=== PATIENT | female | born 1950 | race Caucasian/White ===

== ENCOUNTER 2019-10-15 15:29 | Outpatient (CLI) | payer MEDICARE, OTHER, SELFPAY ==
--- NOTE | ~2019-10-15 | XR_ITS ---
XR abdomen/kub 1V DATE: 10/15/2019 16:01 INDICATION: Kidney calculus TECHNIQUE: Supine AP views of the abdomen COMPARISON: 05/22/2016 KUB FINDINGS: The lower lung zones appear clear. Heart size appears normal. The psoas shadows are intact. No visceromegaly is evident. There is suggestion of possible approximately 4 mm calcification overlying the lower pole right kidne y. Noncontrast CT examination the abdomen and pelvis would be more sensitive and accurate for detect ion of urinary tract calculi. There is a moderate amount of fecal material within the colon. No bowel obstruction is detected. IMPRESSION: Cannot exclude right renal calcified stone(s); noncontrast CT abdomen and pelvis would be more sensitive and accurate for detection of urinary tract calculi Reviewed, dictated and finalized at [facility]. Reviewed, dictated and finalized at location [facility]. IMPRESSION: Cannot exclude right renal calcified stone(s); noncontrast CT abdom en and pelvis would be more sensitive and accurate for detection of urinary tra ct calculi
== END 2019-10-15 15:30 | disposition home or self-care (01) ==
PROVIDERS: PCP Family Medicine
DX: N20.0 Calculus of kidney (principal)
CPT/HCPCS: 74018

== ENCOUNTER 2021-01-08 02:10 | Day surgery (SDC) | payer MEDICARE, SELFPAY ==
[2020-12-27 13:00] VITALS: BMI 42.2
--- NOTE | 2021-01-08 07:00 | P.PNAN_ITS ---
Anes - Initial Pre Proc Eval Procedure: Operation Date: 01/08/21 09:00 Proposed Procedures p Screening Colonoscopy - Kalia Mcmanus MD Date/Time: 01/08/21 07:00 Surgeon: Kalia Mcmanus MD Pre Op Diagnosis: hx of colon polyps Patient Data Age: 70 Gender: F Height: 1.65 m Weight: 115 kg Allergies Allergy/AdvReac Type Severity Reaction Status Date / Time levofloxacin Allergy Intermediate Rash Verified 01/08/21 08:18 Home Medications Medication Instructions Recorded Confirmed Type allopurinol 300 mg PO DAILY 12/27/20 01/08/21 History aspirin [Adult Aspirin] 81 mg PO DAILY 12/27/20 01/08/21 History atorvastatin 10 mg PO DAILY 12/27/20 01/08/21 History bisacodyl [Dulcolax (bisacodyl)] 5 mg PO DAILY 12/27/20 01/08/21 History cyanocobalamin (vitamin B-12) 1,000 mcg IM MONTHLY 12/27/20 01/08/21 History diclofenac sodium 75 mg PO DAILY PRN 12/27/20 01/08/21 History ergocalciferol (vitamin D2) 1,250 mcg PO WEEKLY 12/27/20 01/08/21 History gemfibrozil 600 mg PO BID 12/27/20 01/08/21 History losartan 50 mg PO DAILY 12/27/20 01/08/21 History omeprazole 20 mg PO DAILY 12/27/20 01/08/21 History potassium citrate 15 meq PO DAILY 12/27/20 01/08/21 History Patient hx anesthesia problems: none Family hx anesthesia problems: none [facility] Past Medical History Medical History (Updated 01/08/21 @ 07:01 by Dhruv Burgos DO) GERD (gastroesophageal reflux disease) Hyperlipidemia Hypertension Surgical History Surgical History (Updated 01/08/21 @ 07:01 by Dhruv Burgos DO) History of hysterectomy History of total bilateral knee replacement Social History Social History Smoking status: Never smoker Living arrangements: alone Spiritual care concerns: No Anes - Eval Final PreProcedure Day of Procedure 01/08/21 07:00 Patient weight: morbidly obese Heart: regular rate and rhythm Lungs: clear to auscultation and normal air movement Airway: Mallampati scale class II Neurological: alert and oriented Last oral intake: >/= 8 hours ASA classification: III Emergent: no Anesthetic plan: proceed Anesthesia type and monitoring: general GIVS and standard monitoring Informed Consent: The patient's anesthetic plan and its attendant risks and benefits were discussed with the patient/family/POA. Questions were solicited and answers provided to the satisfaction of the patient/family/POA.
[2021-01-08 08:19] VITALS: BP 131/75; PULSE 90; RESP 16; TEMP 36; O2SAT 97; BMI 43.1
[2021-01-08] MEDS: LACTATED RINGERS 1,000 ML 150 ML IV CONT (08:32)
--- NOTE | 2021-01-08 09:13 | PM.HPGS ---
History of Present Illness History of Present Illness Consent: Risks, benefits, and alternatives have been discussed and questions answered. Patient agrees to proceed with procedure. Chief complaint: hx of colon polyps Narrative: Gertrude Hyatt is a 70 year old female with colon polyps 3 years ago. Review of Systems Constitutional: Constitutional: Denies headache(s) and Denies weakness Eyes: Eyes: Denies blurry vision ENT: Reports Normal hearing present, Denies headache(s) and Denies neck pain Cardiovascular: Cardiovascular: Denies chest pain and Denies dyspnea Respiratory: Respiratory: Denies dyspnea Gastrointestinal: Gastrointestinal: Reports no additional gastrointestinal complaints Genitourinary: Genitourinary: Denies dysuria Musculoskeletal: Musculoskeletal: Denies neck pain Integumentary/Breasts: Skin/Breast: Denies dry skin Neurologic: Reports Normal hearing present, Denies headache(s) and Denies weakness Psychiatric: Psychiatric: Denies anxiety Endocrine: Endocrine: Denies change in body appearance Hematologic/Lymphatic: Hematologic/Lymphatic: Denies easy bleeding Allergic/Immunologic: Allergic/Immunologic: Denies urticaria PMFSH Past Medical History Medical History (Updated 01/08/21 @ 09:14 by Kalia Mcmanus MD) Adenomatous colon polyp GERD (gastroesophageal reflux disease) Hyperlipidemia Hypertension Surgical History Surgical History (Updated 01/08/21 @ 07:01 by Dhruv Burgos DO) History of hysterectomy History of total bilateral knee replacement Social History Social History Smoking status: Never smoker Living arrangements: alone Spiritual care concerns: No Meds Home Medications and Allergies Home Medications Medication Instructions Recorded Confirmed Type allopurinol 300 mg PO DAILY 12/27/20 01/08/21 History aspirin [Adult Aspirin] 81 mg PO DAILY 12/27/20 01/08/21 History atorvastatin 10 mg PO DAILY 12/27/20 01/08/21 History bisacodyl [Dulcolax (bisacodyl)] 5 mg PO DAILY 12/27/20 01/08/21 History cyanocobalamin (vitamin B-12) 1,000 mcg IM MONTHLY 12/27/20 01/08/21 History diclofenac sodium 75 mg PO DAILY PRN 12/27/20 01/08/21 History ergocalciferol (vitamin D2) 1,250 mcg PO WEEKLY 12/27/20 01/08/21 History gemfibrozil 600 mg PO BID 12/27/20 01/08/21 History losartan 50 mg PO DAILY 12/27/20 01/08/21 History omeprazole 20 mg PO DAILY 12/27/20 01/08/21 History potassium citrate 15 meq PO DAILY 12/27/20 01/08/21 History Allergies Allergy/AdvReac Type Severity Reaction Status Date / Time levofloxacin Allergy Intermediate Rash Verified 01/08/21 08:18 Vital Signs Vital Signs - 24 hr 01/08/21 08:19 Temperature 96.8 F L Pulse Rate 90 Respiratory Rate 16 Blood Pressure 131/75 Pulse Oximetry 97 Exam Const: General: comfortable and no acute distress HENMT: General nose exam: Normal nares present Eyes: General: appearance normal, both eyes and all related structures Neck: Neck: no JVD Resp: Auscultation: clear to auscultation bilaterally Cardio: Rate: regular rate Rhythm: regular rhythm GI: Inspection: non-distended GI Palp: Yes Soft to palpation Skin: General skin exam: normal color Neuro: General: gait normal Speech: normal speech Extrem: General: normal to inspection Psych: Mental Status: mental status grossly normal Assessment and Plan Assessment and plan (1) Adenomatous colon polyp: Code(s): D12.6 - Benign neoplasm of colon, unspecified Status: Acute Assessment and Plan: colonoscopy
[2021-01-08 09:43] VITALS: BP 146/129; PULSE 87; RESP 17; O2SAT 94
[2021-01-08 09:53] VITALS: BP 112/70; PULSE 79; RESP 16; O2SAT 94
[2021-01-08 10:03] VITALS: BP 122/73; PULSE 76; RESP 22; O2SAT 97
== END 2021-01-08 10:24 | disposition home or self-care (01) ==
PROVIDERS: PCP Family Medicine; Visit Provider Internal Medicine Gastroenterology
PROC: 0DJD8ZZ Inspection of Lower Intestinal Tract, Via Natural or Artificial Opening Endoscopic (ICD-10-PCS; CPT 45378; principal; 2021-01-08 09:00)
DX: Z12.11 Encounter for screening for malignant neoplasm of colon (principal); D12.0 Benign neoplasm of cecum; K64.8 Other hemorrhoids; K63.5 Polyp of colon; K21.9 Gastro-esophageal reflux disease without esophagitis; I10 Essential (primary) hypertension; Z79.82 Long term (current) use of aspirin; E66.01 Morbid (severe) obesity due to excess calories; Z68.41 Body mass index [BMI] 40.0-44.9, adult
CPT/HCPCS: 45385; 88305; J2704; J7120

== ENCOUNTER 2024-03-05 13:12 | Outpatient (CLI) | payer MEDICARE, SELFPAY ==
--- NOTE | ~2024-03-05 | MM_ITS ---
EXAMINATION: MM screening [facility] BI w jayla HISTORY: Screening TECHNIQUE: Craniocaudal and mediolateral oblique 3-D tomosynthesis images were obtained and synthetic 2-D images were generated. CAD analysis was submitted and interpreted. COMPARISON: 01/09/2017 BREAST PARENCHYMAL COMPOSITION: Not dense: There are scattered areas of fibroglandular density. FINDINGS: There is no evidence of suspicious mass, calcification, or architectural distortion to sugg est malignancy in either breast. There has been no suspicious interval change. IMPRESSION: 1. No mammographic evidence of malignancy. 2. Recommend routine screening mammography in one year. BI-RADS Category 1: Negative Reviewed, dictated and finalized at location [facility].
== END 2024-03-05 13:13 | disposition home or self-care (01) ==
LOC: MICIMG 13:18
PROVIDERS: PCP Family Medicine; Visit Provider Family Medicine
DX: Z12.31 Encounter for screening mammogram for malignant neoplasm of breast (principal)
CPT/HCPCS: 77063; 77067

== ENCOUNTER 2024-05-10 13:03 | Outpatient (CLI) | payer MEDICARE, SELFPAY ==
--- NOTE | ~2024-05-10 | DEXA_ITS ---
Bone Density Report Name: LENCHO WARREN Age: 73 Sex: Female Ethnicity: White Date of : 1950 Indication: postmenopausal; screening for osteoporosis; hysterectomy; Referring Provider: CATRACHITA, [facility] Study: Bone densitometry was performed. Exam Date: May 10, 2024 Accession number: [id number] Bone Density: Region BMD T-score Z-score Classification AP Spine(L1-L4) 1.417 3.4 5.8 Normal Femoral Neck (Left) 0.983 1.2 3.3 Normal Total Hip (Left) 1.288 2.8 4.7 Normal Femoral Neck (Right) 0.915 0.6 2.7 Normal Total Hip (Right) 1.282 2.8 4.6 Normal Femoral Neck Mean 0.949 0.9 3.0 Normal Total Hip Mean 1.285 2.8 4.6 Normal World Health Organization criteria for BMD impression classify patients as: Normal (T-score at or above -1.0), Osteopenia (T-score between -1.0 and -2.5), or Osteoporosis (T-score at or below -2.5). 10-year Fracture Risk: FRAX not reported because: All T-scores for Spine Total, Hip Total, Femoral Neck at or above -1.0 Clinical Information Provided by Patient: Has used the following medications: Vitamin D Has the following medical conditions: Hysterectomy Menopause Age: 48 No regular weight bearing exercise Drinks caffeinated beverages Onset of menses at age 10 Number of children 3 Impression: The patient has normal bone mass. Discussion: LOW RISK OF FRACTURE; BONE DENSITY IS WELL ABOVE THE MINIMUM DESIRABLE LEVEL AND ABOVE AVERAGE FOR AGE AND SEX AT ALL SKELETAL SITES TESTED. This person's bone density is above expected limits for age and sex. This is rarely clinically significant, but should be pursued if there are significant musculoskeletal complaints. The patient should follow a healthful lifestyle (good nutrition with adequate calcium and vitamin D, and appropriate weight-bearing exercise). Follow-Up: Consider repeating this study in 5 years or sooner if there is some new clinical indication. Reported by: CLAIRE on 05/14/2024 3:18:00 PM. Reviewed, dictated and finalized at location A.
== END 2024-05-10 13:04 | disposition home or self-care (01) ==
PROVIDERS: PCP Family Medicine; Visit Provider Family Medicine
DX: Z78.0 Asymptomatic menopausal state (principal)
CPT/HCPCS: 77080

== ENCOUNTER 2025-03-07 12:58 | Outpatient (CLI) | payer MEDICARE, SELFPAY ==
--- NOTE | ~2025-03-07 | MM_ITS ---
EXAMINATION: MM screening [facility] BI w jayla HISTORY: Screening TECHNIQUE: Craniocaudal and mediolateral oblique 3-D tomosynthesis images were obtained and synthetic 2-D images were generated. CAD analysis was submitted and interpreted. COMPARISON: Comparison to multiple prior studies sequentially, with oldest reviewed study dated 01/09/2017. BREAST PARENCHYMAL COMPOSITION: Not dense: There are scattered areas of fibroglandular density. FINDINGS: There is no evidence of suspicious mass, calcification, or architectural distortion to suggest malignancy in either breast. There has been no suspicious interval change. IMPRESSION: 1. No mammographic evidence of malignancy. 2. Recommend routine screening mammography in one year. BI-RADS Category 1: Negative Reviewed, dictated and finalized at location B.
== END 2025-03-07 12:59 | disposition home or self-care (01) ==
LOC: MICIMG 12:59
PROVIDERS: PCP Family Medicine; Visit Provider Family Medicine
DX: Z12.31 Encounter for screening mammogram for malignant neoplasm of breast (principal)
CPT/HCPCS: 77063; 77067

== ENCOUNTER 2025-04-18 14:18 | Outpatient (CLI) | payer MEDICARE, SELFPAY ==
--- NOTE | ~2025-04-18 | XR_ITS ---
XR lumbar spine min 4V Indication: Lumbago with sciatica, right side Comparison: None Findings: Moderate loss of vertebral heights. Grade 1 retrolisthesis of L1 on L2 and L2 on L3, no fracture. Moderate loss of disc height at L1-2 and L2-3. Soft tissues unremarkable Impression: No acute abnormality. Reviewed, dictated and finalized at location P. [employer] Impression: No acute abnormality.
== END 2025-04-18 14:19 | disposition home or self-care (01) ==
PROVIDERS: PCP Family Medicine; Visit Provider Family Medicine
DX: M54.41 Lumbago with sciatica, right side (principal); G89.29 Other chronic pain; Z12.31 Encounter for screening mammogram for malignant neoplasm of breast
CPT/HCPCS: 72110